=== PATIENT | female | born 1940 | race Caucasian/White ===

== ENCOUNTER 2019-03-13 23:59 | Inpatient (IN) | payer MEDICARE, BC ==
[~2019-03-13] VITALS: Ht 160 cm; Wt 82.2 kg
[2019-03-14] VITALS (7 sets, daily range): BP systolic 98–135; BP diastolic 57–84
--- NOTE | 2019-03-14 | NUR ---
Patient in room PCU 3017. I have received report from Verna ANGEL from [employer] and had the opportunity to ask questions and assume patient care. Patient arrived on PCU by EMS. She was oriented to room 3017B, helped into bed and placed on a panel monitor. Vital signs taken (all within normal range) and no pain present. Dr. Jeffrey paged and made aware of patient's arrival.
[2019-03-14] MEDS ORDERED: potassium Cl 20 mEq SR tablet PO PRN ×2 (00:15)
[2019-03-14] MEDS ORDERED: ondansetron/PF 4mg/2ml inj IV PRN (00:15)
[2019-03-14] MEDS ORDERED: magnesium 2GM in 50ml NS 50 ML IV PRN (00:15)
[2019-03-14] MEDS ORDERED: potassium CL 10mEq/100ml bag 100 ML IV PRN ×2 (00:15)
[2019-03-14] MEDS ORDERED: magnesium Cl slow-release 64mg tablet PO PRN (00:15)
[2019-03-14] MEDS ORDERED: nitroGLYCERIN 0.4mg SUBLingual tab SL PRN ×2 (00:15→17:00)
[2019-03-14] MEDS ORDERED: morphine 2 MG/ML inj. syringe IV PRN ×2 (00:15)
[2019-03-14] MEDS ORDERED: acetaminophen 325mg tablet PO PRN (00:15)
[2019-03-14] MEDS ORDERED: HYDROcodone/acetaminophen 5mg/325mg tablet PO PRN (00:15)
[2019-03-14] MEDS ORDERED: magnesium 4gm in 100ml NS 100 ML IV PRN (00:15)
[2019-03-14] MEDS ORDERED: magnesium hydroxide 30ml (MOM) UD suspension PO PRN (00:15)
[2019-03-14] MEDS ORDERED: TRAM50TA2 PO (00:20)
[2019-03-14] MEDS ORDERED: GABA-530 PO (00:20)
[2019-03-14] MEDS ORDERED: CLOP75TA35 PO (00:20)
[2019-03-14] MEDS ORDERED: CARV-50 PO (00:20)
[2019-03-14] MEDS ORDERED: METF750T46 PO (00:20)
[2019-03-14] MEDS ORDERED: DULO-31 PO (00:20)
[2019-03-14] MEDS ORDERED: PRAV40TA3 PO (00:20)
[2019-03-14] MEDS ORDERED: dextrose 50%-water 50ml dispensing syringe IV PRN ×2 (00:30)
[2019-03-14] MEDS ORDERED: glucagon, human recombinant 1mg kit SUBCUT PRN (00:30)
[2019-03-14] MEDS ORDERED: MESSAGE TO PHARMACY PO ONE (00:30)
[2019-03-14] MEDS ORDERED: dextrose ORAL solution 15 GM/59 ML bottle PO PRN ×2 (00:30)
[2019-03-14] MEDS ORDERED: heparin 10,000 units/1 ML INJ IV PRN (03:55)
[2019-03-14] MEDS ORDERED: traMADol 50MG tablet PO PRN (03:55)
[2019-03-14] MEDS ORDERED: heparin 10,000 units/1 ML INJ IV ONE (03:55)
[2019-03-14 04:06] LABS: BASOPHILS % (AUTO) 0.4 % (0-1); EOSINOPHILS # (AUTO) 0.3 X10'3 (0-0.9); EOSINOPHILS % (AUTO) 2.8 % (0-6); HEMATOCRIT 38.4 % (35.0-45.0); HEMOGLOBIN 12.6 g/dl (12.0-16.0); LYMPHOCYTES % (AUTO) 21.5 % (21-51); MEAN CORPUSCULAR HEMOGLOBIN 29.3 PG (27.0-31.0); MEAN CORPUSCULAR HGB CONC 32.7 g/dL (33.0-36.5); MEAN CORPUSCULAR VOLUME 89.4 FL (78-98); MEAN PLATELET VOLUME 8.6 FL (7.4-10.4); MONOCYTES # (AUTO) 0.7 X10'3 (0-0.9); MONOCYTES % (AUTO) 7.2 % (2-12); NEUTROPHILS # (AUTO) 6.4 X10'3 (1.8-7.7); NEUTROPHILS % (AUTO) 68.1 % (42-75); PLATELET COUNT 245 X10'3 (140-440); WHITE BLOOD COUNT 9.4 X10'3 (4.5-11.0)
[2019-03-14 04:28] LABS: ALBUMIN 2.8 G/DL (3.4-5.0); ANION GAP 7 (8-16); BLOOD UREA NITROGEN 35 MG/DL (7-18); BUN/CREATININE RATIO 17.5 (6.6-38.0); CALCIUM 8.5 MG/DL (8.5-10.1); CHLORIDE 105 MMOL/L (99-107); CHOL/HDL RATIO 3.3 (0.00-4.99); CHOLESTEROL 132 MG/DL (0-200); GLUCOSE 163 MG/DL (70-104); HDL CHOLESTEROL 40 MG/DL (35-60); HEMOGLOBIN A1C 8.9 % (4.5-6.2); LDL CHOLESTEROL 46 MG/DL (50-100); MAGNESIUM 2.2 MG/DL (1.5-2.4); POTASSIUM 4.1 MMOL/L (3.5-5.1); SODIUM 140 MMOL/L (135-145); TOTAL CARBON DIOXIDE 27.7 MMOL/L (24-32); TRIGLYCERIDES 155 MG/DL (20-135); eGFR 24 ML/MIN
--- NOTE | 2019-03-14 06:15 | NUR ---
Problems reprioritized. Patient report given, questions answered & plan of care reviewed with Catie ANGEL.
[2019-03-14 07:24] LABS: PARTIAL THROMBOPLASTIN TIME 27 SECONDS (22-32)
[2019-03-14] MEDS: duloxetine 30mg CAPSULE.DR PO SCH (07:27)
[2019-03-14] MEDS: clopidogrel 75mg tablet PO SCH (07:27)
[2019-03-14] MEDS: carVEDilol 12.5mg tablet PO SCH ×2 (07:28→21:06)
--- NOTE | 2019-03-14 07:30 | NUR ---
Patient in room PCU 3017. I have received report from Swetha and had the opportunity to ask questions and assume patient care.
[2019-03-14] MEDS: K and/or MAG REPLACEMENT MC SCH (08:00)
[2019-03-14] MEDS: heparin 25,000 UNIT/250ml bag 250 ML IV SCH (08:30)
[2019-03-14] MEDS ORDERED: pneumococcal 23-VAL P-sac vacc 25 mcg/0.5ml vial IMVAC ONE (10:00)
--- NOTE | 2019-03-14 13:33 | NUR ---
Spoke with Dr. Styles regarding diet. Patient has been NPO pending facilitator consult. Blood sugars have been within therapeutic range. Dr. Styles evaluated patient, pending new orders at this time.
--- NOTE | 2019-03-14 13:58 | NUR ---
PAGER ID: [phone] MESSAGE: [id number] Klarissa Arriazanan, patient has not been seen by chief order dispatcher but she is requesting something to eat. Blood sugars have been stable but she c/o light headedness. Can she eat yet?
--- NOTE | 2019-03-14 15:52 | NUR ---
Requested results of stress test from [facility] per Dr. Styles, pending report.
--- NOTE | 2019-03-14 16:36 | NUR ---
PAGER ID: [phone] MESSAGE: [id number] Klarissa Baltazar, Stress test report received. TRISHA Haddad RN [phone]
[2019-03-14] MEDS ORDERED: aminophylline 250mg/10ml inj. IV PRN (17:00)
[2019-03-14] MEDS ORDERED: regadenoson 0.4mg/5ml syringe IV ONE (17:00)
[2019-03-14] MEDS ORDERED: metoprolol tartrate 1mg/ml inj IV PRN (17:00)
--- NOTE | 2019-03-14 17:31 | NUR ---
DM consult: Pt with A1c 8.9 seen at bedside. Pt states she sees her PCP q 3 months for DM management, takes her meds per rx, and checks her BG levels weekly with resulting numbers 270. Pt acknowledges the need to start checking her BG levels more frequently. Pt states her current BG average is higher than normal and she had better control previously when she was on insulin however stopped taking insulin about 8 months ago d/t insurance issues per pt. Pt provided with written and verbal DM education with referral to outpatient DM class and RD contact information. Pt endorses an improving appetite since admit which is evident with documented 100% PO intake on heart healthy CHO controlled diet likely meeting nutrient needs. Pt denies food allergies and reports some difficulty swallowing at times. Pt denied need for texture modification at this time. RD consulted ST for BSS. Pt denies constipation/diarrhea. [facility] 03/13. Will continue to follow. Addendum: 03/14/19 at [address] Amended: Links added.
--- NOTE | 2019-03-14 18:12 | NUR ---
Problems reprioritized. Patient report given, questions answered & plan of care reviewed with Swetha.
--- NOTE | 2019-03-14 18:15 | NUR ---
Patient in room PCU 3017. I have received report from Barbara ANGEL and had the opportunity to ask questions and assume patient care. Patient is resting comfortably. Heparin is running at 800 units/hr. She is feeling well, will continue to monitor.
[2019-03-14] MEDS: gabapentin 100mg capsule PO SCH (21:07)
[2019-03-14] MEDS: pravastatin 40mg tablet PO SCH (21:07)
[2019-03-14] MEDS: insulin glargine (Lantus) pen - multi-dose SQ SCH (21:09)
[2019-03-15] VITALS (13 sets, daily range): BP systolic 108–134; BP diastolic 52–97
[2019-03-15 05:30] LABS: BASOPHILS % (AUTO) 0.4 % (0-1); EOSINOPHILS # (AUTO) 0.2 X10'3 (0-0.9); EOSINOPHILS % (AUTO) 2.9 % (0-6); HEMATOCRIT 36.5 % (35.0-45.0); LYMPHOCYTES # (AUTO) 2.1 X10'3 (1.1-4.8); LYMPHOCYTES % (AUTO) 30.1 % (21-51); MEAN CORPUSCULAR HEMOGLOBIN 29.4 PG (27.0-31.0); MEAN CORPUSCULAR HGB CONC 32.9 g/dL (33.0-36.5); MEAN CORPUSCULAR VOLUME 89.2 FL (78-98); MEAN PLATELET VOLUME 9.2 FL (7.4-10.4); MONOCYTES # (AUTO) 0.5 X10'3 (0-0.9); MONOCYTES % (AUTO) 6.9 % (2-12); NEUTROPHILS # (AUTO) 4.2 X10'3 (1.8-7.7); NEUTROPHILS % (AUTO) 59.7 % (42-75); PLATELET COUNT 213 X10'3 (140-440); RED BLOOD COUNT 4.09 X10'6 (4.20-5.60); WHITE BLOOD COUNT 7.1 X10'3 (4.5-11.0)
[2019-03-15] MEDS: heparin 25,000 UNIT/250ml bag 250 ML IV SCH (05:41)
[2019-03-15 05:42] LABS: ALBUMIN 2.8 G/DL (3.4-5.0); ANION GAP 7 (8-16); BLOOD UREA NITROGEN 28 MG/DL (7-18); BUN/CREATININE RATIO 15.3 (6.6-38.0); CALCIUM 8.3 MG/DL (8.5-10.1); CHLORIDE 108 MMOL/L (99-107); CREATININE 1.83 MG/DL (0.40-0.90); GLUCOSE 138 MG/DL (70-104); MAGNESIUM 2.3 MG/DL (1.5-2.4); POTASSIUM 4.1 MMOL/L (3.5-5.1); SODIUM 143 MMOL/L (135-145); TOTAL CARBON DIOXIDE 27.6 MMOL/L (24-32); eGFR 27 ML/MIN
--- NOTE | 2019-03-15 06:15 | NUR ---
Patient in room PCU 3017. I have received report from JEANNE Posada and had the opportunity to ask questions and assume patient care.
--- NOTE | 2019-03-15 06:15 | NUR ---
Problems reprioritized. Patient report given, questions answered & plan of care reviewed with Carolina ANGEL.
--- NOTE | 2019-03-15 07:31 | NUR ---
Fausto Baltazar Rm 0133G scheduled for Stress test this am. She had one at [place]. Nuc Med needs confirmation. Carolina Ext [phone] page to Wojciech
[2019-03-15] MEDS: K and/or MAG REPLACEMENT MC SCH (08:00)
--- NOTE | 2019-03-15 08:27 | NUR ---
PAGER ID: [phone] MESSAGE: [id number] Klarissa De Leon: Is it ok to feed pt? Stress test was cancelled because pt had a stress test recently. Thank You Jamie [phone]
[2019-03-15] MEDS: clopidogrel 75mg tablet PO SCH (08:54)
[2019-03-15] MEDS: carVEDilol 12.5mg tablet PO SCH ×2 (08:54→20:50)
[2019-03-15] MEDS: duloxetine 30mg CAPSULE.DR PO SCH (08:54)
[2019-03-15] MEDS ORDERED: iohexol 350MG/ML 100ml bottle IV ONE (12:06)
[2019-03-15] MEDS ORDERED: LIDOcaine 1% (10mg/ml)w/preservative injection 20ml MDV ONE (12:06)
[2019-03-15] MEDS ORDERED: iohexol 350 MG/ML 50ML vial IV ONE ×2 (12:06→12:49)
[2019-03-15] MEDS ORDERED: midazolam 2 mg/2 ml injection ONE (12:06)
[2019-03-15] MEDS ORDERED: fentaNYL/PF 50MCG/1 ML 2ML syringe ONE (12:06)
--- NOTE | 2019-03-15 13:14 | NUR ---
1200 pt went to rhinologist 1315 RECIEVED CALL FROM Juan director of cardiac cath lab. pt returning to U
[2019-03-15] MEDS ORDERED: normal saline 1000ml 1,000 ML IV ONE (14:10)
[2019-03-15] MEDS ORDERED: HYDROcodone/acetaminophen 10/325mg tab PO PRN (14:15)
[2019-03-15] MEDS ORDERED: proCHLORperazine 10 MG/2 ml inj IV PRN (14:15)
[2019-03-15] MEDS ORDERED: ondansetron/PF 4mg/2ml inj IV PRN (14:15)
[2019-03-15] MEDS ORDERED: OXAZEpam 15mg capsule PO PRN (14:15)
[2019-03-15] MEDS ORDERED: acetaminophen 325mg tablet PO PRN (14:15)
--- NOTE | 2019-03-15 15:53 | NUR ---
Received report from Steve ANGEL
--- NOTE | 2019-03-15 16:10 | NUR ---
report given to JEANNE Waldron on ACCE. Pt is stable A&Ox4, VSS.
--- NOTE | 2019-03-15 16:43 | NUR ---
Pt transported via bed to ACCE Rm 10. All belongings with pt and medications were delivered to RN.
--- NOTE | 2019-03-15 17:52 | NUR ---
PAGER ID: [phone] MESSAGE: 310: DEEPAKKINWilly - did you get in touch with Dr. Beebe for consult? he has not seen patient yet. charge Tamia ext [phone]
--- NOTE | 2019-03-15 18:00 | NUR ---
Patient in room MED 310. I have received report from Vanita ANGEL and had the opportunity to ask questions and assume patient care.
--- NOTE | 2019-03-15 18:26 | NUR ---
Problems reprioritized. Patient report given, questions answered & plan of care reviewed with Raoul ANGEL and Lexie ANGEL.
--- NOTE | 2019-03-15 19:35 | NUR ---
RN noticed visual deficit during helping pt with ADL. Neuro assessment was performed, slight facial droop noted to left lower face, no upper/lower extremities drifting, no diminished sensation to upper/lower extremities. Visual blind spot to left upper, and lower corners, as well as right lower corner. Pt was ambiguous with when the visual deficit started. RN will need to establish baseline with daughter Jeanne
--- NOTE | 2019-03-15 19:43 | NUR ---
LM with daughter Jeanne to r/o new onset of visual deficit
[2019-03-15] MEDS: gabapentin 100mg capsule PO SCH (20:50)
[2019-03-15] MEDS: pravastatin 40mg tablet PO SCH (20:51)
[2019-03-15] MEDS: insulin glargine (Lantus) pen - multi-dose SQ SCH (21:16)
[2019-03-16 02:00] VITALS: BP 99/56
[2019-03-16 05:22] LABS: BASOPHILS % (AUTO) 0.5 % (0-1); EOSINOPHILS # (AUTO) 0.2 X10'3 (0-0.9); EOSINOPHILS % (AUTO) 2.4 % (0-6); HEMATOCRIT 36.4 % (35.0-45.0); LYMPHOCYTES # (AUTO) 1.6 X10'3 (1.1-4.8); LYMPHOCYTES % (AUTO) 21.3 % (21-51); MEAN CORPUSCULAR HEMOGLOBIN 29.6 PG (27.0-31.0); MEAN CORPUSCULAR HGB CONC 33.1 g/dL (33.0-36.5); MEAN CORPUSCULAR VOLUME 89.5 FL (78-98); MEAN PLATELET VOLUME 9.1 FL (7.4-10.4); MONOCYTES # (AUTO) 0.5 X10'3 (0-0.9); MONOCYTES % (AUTO) 7.5 % (2-12); NEUTROPHILS % (AUTO) 68.3 % (42-75); PLATELET COUNT 215 X10'3 (140-440); RED BLOOD COUNT 4.07 X10'6 (4.20-5.60); RED CELL DISTRIBUTION WIDTH 16.1 % (11.5-14.5); WHITE BLOOD COUNT 7.3 X10'3 (4.5-11.0)
[2019-03-16 05:44] LABS: ALBUMIN 2.8 G/DL (3.4-5.0); ANION GAP 10 (8-16); BLOOD UREA NITROGEN 25 MG/DL (7-18); BUN/CREATININE RATIO 14.8 (6.6-38.0); CALCIUM 8.5 MG/DL (8.5-10.1); CHLORIDE 108 MMOL/L (99-107); CREATININE 1.69 MG/DL (0.40-0.90); GLUCOSE 108 MG/DL (70-104); MAGNESIUM 2.3 MG/DL (1.5-2.4); POTASSIUM 4.5 MMOL/L (3.5-5.1); SODIUM 142 MMOL/L (135-145); TOTAL CARBON DIOXIDE 24.5 MMOL/L (24-32); eGFR 29 ML/MIN
[2019-03-16 06:00] VITALS: BP 128/69
--- NOTE | 2019-03-16 06:00 | NUR ---
Problems reprioritized. Patient report given, questions answered & plan of care reviewed with JEANNE Waldron.
--- NOTE | 2019-03-16 06:30 | NUR ---
Patient in room MED 310. I have received report from Raoul ANGEL and had the opportunity to ask questions and assume patient care.
[2019-03-16] MEDS: clopidogrel 75mg tablet PO SCH (08:00)
[2019-03-16] MEDS: K and/or MAG REPLACEMENT MC SCH (08:00)
[2019-03-16] MEDS: carVEDilol 12.5mg tablet PO SCH ×2 (09:21→20:30)
[2019-03-16] MEDS: duloxetine 30mg CAPSULE.DR PO SCH (09:21)
[2019-03-16] MEDS ORDERED: MESSAGE TO NURSING PO ONE ×5 (09:50→10:00)
[2019-03-16] MEDS ORDERED: magnesium 4gm in 100ml NS 100 ML IV PRN (09:50)
[2019-03-16] MEDS ORDERED: potassium Cl 20 mEq SR tablet PO PRN (09:50)
[2019-03-16] MEDS ORDERED: magnesium 2GM in 50ml NS 50 ML IV PRN (09:50)
[2019-03-16] MEDS ORDERED: potassium Cl 20mEq/100mL bag 100 ML IV PRN (09:50)
[2019-03-16] MEDS ORDERED: dextrose 50%-water 50ml dispensing syringe IV PRN (09:50)
[2019-03-16] MEDS ORDERED: insulin glargine (Lantus) pen - multi-dose SQ PRN (09:50)
[2019-03-16 10:00] VITALS: BP 117/65
[2019-03-16 11:23] LABS: PARTIAL THROMBOPLASTIN TIME 27 SECONDS (22-32)
--- NOTE | 2019-03-16 12:33 | NUR ---
RECEIVED CALL FROM RADIOLOGIST RE: CT HEAD AND RADIOLOGIST NOTED VAGUE HYPODENSITY TO RIGHT SIDE OF BRAIN. PAGED HOSPITALIST, "VANITA [phone]- PLEASE CALL [facility] JOIE CT HEAD FOR RM Lennie FILEMON ACUNA" Addendum: 03/16/19 at 1637 by Vanita Ramesh RN WRONG TIME DOCUMENTED, CORRECT TIME WAS 1433
[2019-03-16 13:17] LABS: CLARITY,URINE CLEAR (Clear); COLOR,URINE YELLOW (Yellow); GLUCOSE, URINE NEGATIVE (Neg); KETONES,URINE TRACE mg/dl (Neg); LEUKOCYTE ESTERASE ,URINE NEGATIVE (Neg); NITRITES, URINE NEGATIVE (Neg); OCCULT BLOOD,URINE NEGATIVE (Neg); PROTEIN,URINE NEGATIVE (Neg); UROBILINOGEN,URINE 0.2 E.U/dL (0.2-1.0)
[2019-03-16 13:18] LABS: UA COLLECTION TYPE NON-SPECIFIED
[2019-03-16 14:30] VITALS: BP 141/78
--- NOTE | 2019-03-16 14:33 | NUR ---
RECEIVED CALL FROM RADIOLOGIST RE: CT HEAD AND RADIOLOGIST NOTED VAGUE HYPODENSITY TO RIGHT SIDE OF BRAIN. PAGED HOSPITALIST, "GABRIELLA [phone]- PLEASE CALL [facility] RE CT HEAD FOR RM 310 FILEMON ACUNA"
--- NOTE | 2019-03-16 14:56 | NUR ---
Page to Case Management 310-Giovanny. Pt. is now requesting to go to [facility] for her CABG. Thank You.
--- NOTE | 2019-03-16 15:05 | NUR ---
PAGED HOSPITALIST RE: +MRI FOR ACUTE STROKES.
--- NOTE | 2019-03-16 15:11 | NUR ---
PAGED HOSPITALIST, "GABRIELLA [phone]- PLEASE CALL THIS NURSE EVON RE: 310 FILEMON ACUNA. MRI SHOWING MULTIPLE ACUTE INFARCTS."
--- NOTE | 2019-03-16 16:15 | NUR ---
Dr Jeffrey notified of MRI results, Telemedicine neurology evaluation order initiated.
--- NOTE | 2019-03-16 17:12 | NUR ---
DR. DUNN REQUESTED PATIENT'S MRI/MRA RESULTS TO BE SENT TO [facility] AND FOR CAROTID DOPPLER TO BE SENT OVER WELL. CT SENT MRI/MRA OVER ALREADY AND THIS NURSE CALLED VASCULAR AND LEFT VOICEMAIL TO SEND CAROTID DOPPLER RESULTS OVER, WAITING ON CALLBACK. WILL MAKE MONA AWARE OF THIS.
--- NOTE | 2019-03-16 17:16 | NUR ---
PAGED DR. DUNN, 'GABRIELLA [phone]- [facility],LEFT VOICEMAIL FOR VASCULAR TO SEND CAROTID DOPPLER TO [facility] IF POSSIBLE."
[2019-03-16] MEDS ORDERED: heparin 25,000 UNIT/250ml bag 250 ML IV SCH ×2 (17:24→17:33)
[2019-03-16] MEDS ORDERED: heparin 10,000 units/1 ML INJ IV ONE (17:25)
[2019-03-16] MEDS ORDERED: heparin 10,000 units/1 ML INJ IV PRN (17:25)
--- NOTE | 2019-03-16 17:31 | NUR ---
PAGED HOSPITALIST, "GABRIELLA [phone]- RM. 310 FILEMON ACUNA- PLEASE CLARIFY CARDIAC OR STROKE HEP DRIP PROTOCOL?" CALLED BACK TO INFORM THAT HE WANTS STROKE HEP DRIP PROTOCOL.
[2019-03-16 18:00] VITALS: BP 131/78
[2019-03-16 18:07] LABS: BASOPHILS % (AUTO) 0.5 % (0-1); EOSINOPHILS # (AUTO) 0.1 X10'3 (0-0.9); EOSINOPHILS % (AUTO) 1.8 % (0-6); HEMATOCRIT 39.4 % (35.0-45.0); HEMOGLOBIN 12.8 g/dl (12.0-16.0); LYMPHOCYTES # (AUTO) 1.4 X10'3 (1.1-4.8); LYMPHOCYTES % (AUTO) 16.3 % (21-51); MEAN CORPUSCULAR HEMOGLOBIN 29.1 PG (27.0-31.0); MEAN CORPUSCULAR HGB CONC 32.6 g/dL (33.0-36.5); MEAN CORPUSCULAR VOLUME 89.3 FL (78-98); MEAN PLATELET VOLUME 9.3 FL (7.4-10.4); MONOCYTES # (AUTO) 0.4 X10'3 (0-0.9); MONOCYTES % (AUTO) 5.1 % (2-12); NEUTROPHILS # (AUTO) 6.4 X10'3 (1.8-7.7); NEUTROPHILS % (AUTO) 76.3 % (42-75); PLATELET COUNT 238 X10'3 (140-440); RED BLOOD COUNT 4.41 X10'6 (4.20-5.60); RED CELL DISTRIBUTION WIDTH 16.4 % (11.5-14.5); WHITE BLOOD COUNT 8.3 X10'3 (4.5-11.0)
[2019-03-16 18:16] LABS: PARTIAL THROMBOPLASTIN TIME 28 SECONDS (22-32)
--- NOTE | 2019-03-16 18:29 | NUR ---
Problems reprioritized. Patient report given, questions answered & plan of care reviewed with Silvia ANGEL.
[2019-03-16] MEDS: insulin Lispro (HumaLOG) vial - multi-dose SQ SCH (18:57)
[2019-03-16] MEDS ORDERED: mupirocin 2% nasal ointment 1gm UD NS SCH (20:00)
[2019-03-16] MEDS: gabapentin 100mg capsule PO SCH (20:28)
[2019-03-16] MEDS: metoprolol tartrate 12.5mg (1/2 tablet) PO SCH (20:30)
[2019-03-16] MEDS: pravastatin 40mg tablet PO SCH (20:30)
[2019-03-16] MEDS: insulin glargine (Lantus) pen - multi-dose SQ SCH (21:02)
[2019-03-16] MEDS: heparin 25,000 UNIT/250ml bag 250 ML IV SCH (21:16)
[2019-03-16 22:00] VITALS: BP 98/56
[2019-03-16] MEDS ORDERED: albuterol 2.5 MG/3 ML nebule NEB ONE (22:00)
[2019-03-16 22:15] LABS: ABG BASE EXCESS -2.4 mmol/L (-2.0-3.0); ABG HCO3 21.2 mmol/L (22.0-26.0); ABG OXYGEN SATURATION 95.4 % (95-98); ABG PCO2 (T) 32.9 mmHg (35.0-45.0); ABG PH (T) 7.427 (7.350-7.450); ABG PO2 (T) 73.3 mmHg (83-108); ALLEN'S TEST Positive; FCOHb 0.1 % (0.5-1.5); FMetHb 0.1 % (0.3-1.12); FO2Hb 95.2 % (94-100); PATIENT TEMPERATURE 36.8; RESPIRATORY RATE (OBSERVED) 16 b/min; TOTAL HEMOGLOBIN 12.9 G/dl (12.0-16.0)
[2019-03-17] MEDS: heparin 25,000 UNIT/250ml bag 250 ML IV SCH ×2 (01:01→17:53)
[2019-03-17 02:00] VITALS: BP 119/63
[2019-03-17] MEDS ORDERED: vancomycin/NS 1 GM ADD-VANTAGE 250 ML IV ONE (05:30)
[2019-03-17] MEDS ORDERED: MALTODEXTRIN/FRUCTOSE 0.68 KCAL/ML LIQUID 296ML BOTTLE PO ONE (05:30)
[2019-03-17] MEDS ORDERED: insulin regular, human 100 UNIT in normal saline 100ml IV soln 100 ML IV SCH ×2 (05:30)
[2019-03-17] MEDS ORDERED: cefazolin/dext.iso 2gm/50ml 50 ML IV ONE (05:30)
[2019-03-17] MEDS ORDERED: gabapentin 400mg capsule PO ONE (05:30)
[2019-03-17 06:00] VITALS: BP 131/71
--- NOTE | 2019-03-17 06:00 | NUR ---
Patient in room MED 310. I have received report from JEANNE Vega and had the opportunity to ask questions and assume patient care.
--- NOTE | 2019-03-17 06:15 | NUR ---
Problems reprioritized. Patient report given, questions answered & plan of care reviewed with JEANNE Waldron and JEANNE Salvador.
[2019-03-17 07:22] LABS: BASOPHILS % (AUTO) 0.4 % (0-1); EOSINOPHILS # (AUTO) 0.2 X10'3 (0-0.9); EOSINOPHILS % (AUTO) 2.1 % (0-6); HEMATOCRIT 37.4 % (35.0-45.0); HEMOGLOBIN 12.1 g/dl (12.0-16.0); LYMPHOCYTES % (AUTO) 23.4 % (21-51); MEAN CORPUSCULAR HEMOGLOBIN 29.1 PG (27.0-31.0); MEAN CORPUSCULAR HGB CONC 32.3 g/dL (33.0-36.5); MEAN CORPUSCULAR VOLUME 89.9 FL (78-98); MEAN PLATELET VOLUME 9.2 FL (7.4-10.4); MONOCYTES # (AUTO) 0.7 X10'3 (0-0.9); NEUTROPHILS # (AUTO) 5.6 X10'3 (1.8-7.7); NEUTROPHILS % (AUTO) 66.1 % (42-75); PLATELET COUNT 211 X10'3 (140-440); RED BLOOD COUNT 4.16 X10'6 (4.20-5.60); RED CELL DISTRIBUTION WIDTH 16.4 % (11.5-14.5); WHITE BLOOD COUNT 8.4 X10'3 (4.5-11.0)
[2019-03-17 07:39] LABS: ALBUMIN 2.8 G/DL (3.4-5.0); ANION GAP 8 (8-16); BLOOD UREA NITROGEN 27 MG/DL (7-18); BUN/CREATININE RATIO 15.8 (6.6-38.0); CALCIUM 9.3 MG/DL (8.5-10.1); CHLORIDE 107 MMOL/L (99-107); CREATININE 1.71 MG/DL (0.40-0.90); GLUCOSE 142 MG/DL (70-104); MAGNESIUM 2.5 MG/DL (1.5-2.4); POTASSIUM 4.2 MMOL/L (3.5-5.1); SODIUM 140 MMOL/L (135-145); TOTAL CARBON DIOXIDE 24.7 MMOL/L (24-32); eGFR 29 ML/MIN
--- NOTE | 2019-03-17 07:50 | NUR ---
PAGER ID: [phone] MESSAGE: RM 310 Bharti Baltazar 4522 PTT came back critical 121. Holding heparin gtt x2 hours per protocol. Madeleine ACCE 8222.
[2019-03-17] MEDS: carVEDilol 12.5mg tablet PO SCH ×2 (08:00→20:30)
[2019-03-17] MEDS: K and/or MAG REPLACEMENT MC SCH (08:00)
[2019-03-17] MEDS: metoprolol tartrate 12.5mg (1/2 tablet) PO SCH (08:00)
[2019-03-17] MEDS: duloxetine 30mg CAPSULE.DR PO SCH (08:40)
[2019-03-17] MEDS: insulin Lispro (HumaLOG) vial - multi-dose SQ SCH ×2 (08:51→14:08)
--- NOTE | 2019-03-17 09:00 | NUR ---
Patient noncompliant and was up /down to BR multiple times, would remove BP cuff during vital signs while performing V.S. protocol for initiation of cardizem drip. Was unable to chart vitals d/t noncompliance.
--- NOTE | 2019-03-17 09:02 | NUR ---
PAGER ID: [phone] MESSAGE: RM 310 Bharti Baltazar 6021 PTT came back critical 121. Holding heparin gtt x2 hours per protocol. Madeleine ACCE 8241.
[2019-03-17] MEDS: mag hydrox/Alum hydrox/simeth 30ml oral suspension PO PRN (10:44)
[2019-03-17] MEDS: HYDROcodone/acetaminophen 5mg/325mg tablet PO PRN (10:44)
[2019-03-17] MEDS: hydrocortisone 1% cream 28gm TP SCH ×2 (10:45→20:00)
[2019-03-17 11:00] VITALS: BP 102/54
--- NOTE | 2019-03-17 12:31 | NUR ---
Paged hospitalist, "Vanita [phone]- Rm. 310 GiovannyKlarissa had burning pain to right abd-resolved with Winfield & Maalox. Wanted to let you know."
--- NOTE | 2019-03-17 14:36 | NUR ---
Paged hospitalist, "Vanita 8263- Rm. 310 Klarissa Baltazra- per Dr. Houston recommendation wants a neuro consult. Can you consult a neurologist?" Waiting on neuro consult.
[2019-03-17 15:00] VITALS: BP 94/50
--- NOTE | 2019-03-17 17:28 | NUR ---
PAGER ID: [phone] MESSAGE: RM 310 Klarissa Baltazar. Urine output 300mls for the shift. Madeleine ACCE [id number]
--- NOTE | 2019-03-17 17:29 | NUR ---
Orientee documentation and med adminstration: I have reviewed and agree with all interventions, assessments performed and documented by Madeleine ANGEL.
[2019-03-17] MEDS ORDERED: normal saline 1000ml 1,000 ML IV ONE (17:40)
[2019-03-17 18:00] VITALS: BP 110/67
--- NOTE | 2019-03-17 18:30 | NUR ---
Problems reprioritized. Patient report given, questions answered & plan of care reviewed with JEANNE Vega & JEANNE Moore.
[2019-03-17] MEDS ORDERED: mupirocin 2% nasal ointment 1gm UD NS SCH (20:00)
[2019-03-17] MEDS: pravastatin 40mg tablet PO SCH (20:29)
[2019-03-17] MEDS: gabapentin 100mg capsule PO SCH (20:30)
[2019-03-17] MEDS: insulin glargine (Lantus) pen - multi-dose SQ SCH (21:58)
[2019-03-17 22:00] VITALS: BP 95/55
[2019-03-17 23:40] LABS: TOTAL PROTEIN,URINE RANDOM 33.5 MG/DL
[2019-03-18 02:00] VITALS: BP 95/62
[2019-03-18 02:38] LABS: BASOPHILS % (AUTO) 0.3 % (0-1); EOSINOPHILS # (AUTO) 0.2 X10'3 (0-0.9); HEMOGLOBIN 10.8 g/dl (12.0-16.0); LYMPHOCYTES # (AUTO) 1.7 X10'3 (1.1-4.8); MEAN CORPUSCULAR HEMOGLOBIN 29.2 PG (27.0-31.0); MEAN CORPUSCULAR HGB CONC 32.7 g/dL (33.0-36.5); MEAN CORPUSCULAR VOLUME 89.1 FL (78-98); MEAN PLATELET VOLUME 9.2 FL (7.4-10.4); MONOCYTES # (AUTO) 0.7 X10'3 (0-0.9); MONOCYTES % (AUTO) 8.4 % (2-12); NEUTROPHILS # (AUTO) 5.4 X10'3 (1.8-7.7); NEUTROPHILS % (AUTO) 68.3 % (42-75); PLATELET COUNT 173 X10'3 (140-440); RED BLOOD COUNT 3.71 X10'6 (4.20-5.60); RED CELL DISTRIBUTION WIDTH 15.8 % (11.5-14.5); WHITE BLOOD COUNT 7.9 X10'3 (4.5-11.0)
[2019-03-18 02:48] LABS: ALBUMIN 2.7 G/DL (3.4-5.0); ANION GAP 9 (8-16); BLOOD UREA NITROGEN 28 MG/DL (7-18); BUN/CREATININE RATIO 15.8 (6.6-38.0); CALCIUM 8.3 MG/DL (8.5-10.1); CHLORIDE 108 MMOL/L (99-107); CREATININE 1.77 MG/DL (0.40-0.90); GLUCOSE 148 MG/DL (70-104); MAGNESIUM 2.3 MG/DL (1.5-2.4); POTASSIUM 4.2 MMOL/L (3.5-5.1); SODIUM 142 MMOL/L (135-145); TOTAL CARBON DIOXIDE 25.1 MMOL/L (24-32); eGFR 28 ML/MIN
[2019-03-18] MEDS ORDERED: cefazolin/dext.iso 2gm/50ml 50 ML IV ONE (05:30)
[2019-03-18] MEDS ORDERED: insulin regular, human 100 UNIT in normal saline 100ml IV soln 100 ML IV SCH ×2 (05:30)
[2019-03-18] MEDS ORDERED: vancomycin/NS 1 GM ADD-VANTAGE 250 ML IV ONE (05:30)
[2019-03-18] MEDS ORDERED: MALTODEXTRIN/FRUCTOSE 0.68 KCAL/ML LIQUID 296ML BOTTLE PO ONE (05:30)
[2019-03-18] MEDS ORDERED: gabapentin 400mg capsule PO ONE (05:30)
[2019-03-18 06:00] VITALS: BP 114/59
--- NOTE | 2019-03-18 06:31 | NUR ---
Patient in room MED 310. I have received report from JEANNE Vega and had the opportunity to ask questions and assume patient care.
--- NOTE | 2019-03-18 06:32 | NUR ---
Problems reprioritized. Patient report given, questions answered & plan of care reviewed with Renetta.
--- NOTE | 2019-03-18 06:33 | NUR ---
Orientee documentation and medication administration: I have reviewed and agree with all interventions, assessments performed and documented by JEANNE Moore.
[2019-03-18] MEDS: hydrocortisone 1% cream 28gm TP SCH (06:38)
[2019-03-18] MEDS: K and/or MAG REPLACEMENT MC SCH (07:58)
[2019-03-18] MEDS: duloxetine 30mg CAPSULE.DR PO SCH (07:59)
[2019-03-18] MEDS: carVEDilol 12.5mg tablet PO SCH ×2 (07:59→21:48)
[2019-03-18] MEDS ORDERED: hydrocortisone 1% cream 28gm TP PRN (09:15)
[2019-03-18] MEDS: insulin Lispro (HumaLOG) vial - multi-dose SQ SCH (09:50)
--- NOTE | 2019-03-18 10:31 | NUR ---
PAGED PICC NURSE "RE: HERSKIND IN 310, CAN YOU PLEASE HELP WITH AN EXTENDED IV, PT CABG ISN'T UNTIL SUNDAY, AND SHE IS A DIFFICULT STICK. THANK YOU, THIAGO [phone]"
[2019-03-18 11:00] VITALS: BP 109/62
--- NOTE | 2019-03-18 13:46 | NUR ---
Initial: Pt admit w/ NSTEMI EF 45% and severe CAD per MD note. Plans for CABG 03/22 per MD note. PO 25% avg carb controlled/heart healthy meals not meeting needs. Pt seen by IRMA at bed side who encouraged PO and protein importance. Pt agrees to vanilla ensure pudding BIDBD; dietary notified. Pt endorses good appetite and reports once episode of reflux last night which has resolved and no further diet concerns. LBM 03/16. Will continue to monitor for additional protein needs. IF to have CABG will need ed once stable prior to d/c. Rec: 1. continue carb controlled/heart healthy diet 2. vanilla ensure pudding BIDBD while PO <65% avg meals 3. routine bowel care 4. weekly wts Addendum: 03/18/19 at [address] Amended: Links added.
[2019-03-18 15:00] VITALS: BP 118/62
[2019-03-18 18:00] VITALS: BP 138/63
--- NOTE | 2019-03-18 18:17 | NUR ---
Problems reprioritized. Patient report given, questions answered & plan of care reviewed with JEANNE Quezada.
--- NOTE | 2019-03-18 21:00 | NUR ---
Called the ARCHITECTURAL ENGINEERING TEACHER Yosef regarding the patient blood pressure being 204/103. He ordered Hydralazine q6hr prn for systolic blood pressure greater than 185. No other orders were given at this time.
[2019-03-18] MEDS: pravastatin 40mg tablet PO SCH (21:48)
[2019-03-18] MEDS: gabapentin 100mg capsule PO SCH (21:48)
[2019-03-18] MEDS: HYDROcodone/acetaminophen 5mg/325mg tablet PO PRN (21:49)
[2019-03-18] MEDS: mag hydrox/Alum hydrox/simeth 30ml oral suspension PO PRN (21:49)
[2019-03-18] MEDS: insulin glargine (Lantus) pen - multi-dose SQ SCH (21:51)
[2019-03-18 22:00] VITALS: BP 105/56
[2019-03-18] MEDS: heparin 25,000 UNIT/250ml bag 250 ML IV SCH (23:28)
[2019-03-18] MEDS: heparin 10,000 units/1 ML INJ IV PRN (23:29)
[2019-03-19 02:00] VITALS: BP 95/56
[2019-03-19 05:12] LABS: BASOPHILS # (AUTO) 0.1 X10'3 (0-0.2); EOSINOPHILS # (AUTO) 0.2 X10'3 (0-0.9); EOSINOPHILS % (AUTO) 2.8 % (0-6); HEMATOCRIT 28.1 % (35.0-45.0); HEMOGLOBIN 9.2 g/dl (12.0-16.0); LYMPHOCYTES # (AUTO) 1.9 X10'3 (1.1-4.8); LYMPHOCYTES % (AUTO) 26.9 % (21-51); MEAN CORPUSCULAR HEMOGLOBIN 29.4 PG (27.0-31.0); MEAN CORPUSCULAR HGB CONC 32.8 g/dL (33.0-36.5); MEAN CORPUSCULAR VOLUME 89.7 FL (78-98); MEAN PLATELET VOLUME 9.2 FL (7.4-10.4); MONOCYTES # (AUTO) 0.6 X10'3 (0-0.9); MONOCYTES % (AUTO) 8.3 % (2-12); NEUTROPHILS # (AUTO) 4.2 X10'3 (1.8-7.7); PLATELET COUNT 169 X10'3 (140-440); RED BLOOD COUNT 3.13 X10'6 (4.20-5.60); RED CELL DISTRIBUTION WIDTH 15.9 % (11.5-14.5)
[2019-03-19 05:50] LABS: ALBUMIN 2.6 G/DL (3.4-5.0); ANION GAP 7 (8-16); BLOOD UREA NITROGEN 25 MG/DL (7-18); BUN/CREATININE RATIO 15.1 (6.6-38.0); CALCIUM 8.5 MG/DL (8.5-10.1); CHLORIDE 108 MMOL/L (99-107); CREATININE 1.66 MG/DL (0.40-0.90); GLUCOSE 130 MG/DL (70-104); MAGNESIUM 2.3 MG/DL (1.5-2.4); POTASSIUM 4.4 MMOL/L (3.5-5.1); SODIUM 140 MMOL/L (135-145); TOTAL CARBON DIOXIDE 24.8 MMOL/L (24-32); eGFR 30 ML/MIN
[2019-03-19 06:00] VITALS: BP 100/55
[2019-03-19 07:02] LABS: LARGE PLATELETS FEW; PLATELET ESTIMATE NORMAL
[2019-03-19] MEDS: K and/or MAG REPLACEMENT MC SCH (08:00)
[2019-03-19] MEDS: duloxetine 30mg CAPSULE.DR PO SCH (09:47)
[2019-03-19] MEDS: carVEDilol 12.5mg tablet PO SCH ×2 (09:47→21:37)
[2019-03-19] MEDS: insulin Lispro (HumaLOG) vial - multi-dose SQ SCH ×2 (09:55→12:48)
[2019-03-19] MEDS: heparin 25,000 UNIT/250ml bag 250 ML IV SCH (10:03)
--- NOTE | 2019-03-19 10:11 | NUR ---
NIHSS worse from last documented, discussed with Dr Vyas order obtained for non contrast ct of the head.
[2019-03-19 11:00] VITALS: BP 122/62
[2019-03-19 15:00] VITALS: BP 113/64
[2019-03-19] MEDS ORDERED: ziprasidone IM 20mg inj **IM only IM ONE (16:55)
[2019-03-19 18:00] VITALS: BP 136/96
--- NOTE | 2019-03-19 18:15 | NUR ---
Problems reprioritized. Patient report given, questions answered & plan of care reviewed with JEANNE Quezada.
[2019-03-19] MEDS: pravastatin 40mg tablet PO SCH (21:37)
[2019-03-19] MEDS: gabapentin 100mg capsule PO SCH (21:37)
[2019-03-19] MEDS: mag hydrox/Alum hydrox/simeth 30ml oral suspension PO PRN (21:37)
[2019-03-19] MEDS: insulin glargine (Lantus) pen - multi-dose SQ SCH (21:44)
[2019-03-19 22:00] VITALS: BP 106/63
[2019-03-20 02:00] VITALS: BP 110/63
[2019-03-20] MEDS: heparin 10,000 units/1 ML INJ IV PRN ×2 (02:29→13:41)
[2019-03-20] MEDS: heparin 25,000 UNIT/250ml bag 250 ML IV SCH ×3 (02:33→13:44)
[2019-03-20 06:00] VITALS: BP 110/65
--- NOTE | 2019-03-20 06:28 | NUR ---
Gave report to Indigo. Answered all the questions.
--- NOTE | 2019-03-20 06:33 | NUR ---
Patient in room MED 310. I have received report from JEANNE Quezada and had the opportunity to ask questions and assume patient care.
[2019-03-20] MEDS: K and/or MAG REPLACEMENT MC SCH (08:00)
[2019-03-20] MEDS: carVEDilol 12.5mg tablet PO SCH ×2 (08:50→20:00)
[2019-03-20] MEDS: duloxetine 30mg CAPSULE.DR PO SCH (08:50)
[2019-03-20] MEDS: insulin Lispro (HumaLOG) vial - multi-dose SQ SCH ×2 (08:53→18:53)
[2019-03-20 10:31] LABS: ALANINE AMINOTRANSFERASE 7 U/L (12-78); ALBUMIN 2.1 G/DL (3.4-5.0); ALBUMIN/GLOBULIN RATIO 0.6 (1.1-1.5); ALKALINE PHOSPHATASE 54 IU/L (46-116); ANION GAP 10 (8-16); ASPARTATE AMINO TRANSFERASE 17 U/L (10-37); BILIRUBIN,TOTAL 0.3 MG/DL (0.1-1.0); BLOOD UREA NITROGEN 24 MG/DL (7-18); BUN/CREATININE RATIO 17.1 (6.6-38.0); CALCIUM 7.4 MG/DL (8.5-10.1); CHLORIDE 110 MMOL/L (99-107); GLUCOSE 185 MG/DL (70-104); MAGNESIUM 1.9 MG/DL (1.5-2.4); SODIUM 141 MMOL/L (135-145); TOTAL CARBON DIOXIDE 21.5 MMOL/L (24-32); TOTAL PROTEIN 5.5 G/DL (6.4-8.2); eGFR 36 ML/MIN
[2019-03-20 10:35] LABS: POTASSIUM 3.8 MMOL/L (3.5-5.1)
[2019-03-20 11:00] VITALS: BP 100/59
--- NOTE | 2019-03-20 14:48 | NUR ---
PAGER ID: [phone] MESSAGE: rm. 310. pt. Klarissa Baltazar. no current order for dorcas. going to remove it unless you oppose. JEANNE Calhoun. [phone] Addendum: 03/20/19 at 1523 by Unique Tolbert RN MD rasheed yañez.
[2019-03-20 15:00] VITALS: BP 114/63
--- NOTE | 2019-03-20 15:18 | NUR ---
PAGER ID: [phone] MESSAGE: 310: HERSKIND - family update. they want patient to D/C so they can take her to [facility]. ?d/c heparin and restart Plavix or heparin/lovenox SQ? charge Janay ext [phone]
--- NOTE | 2019-03-20 15:38 | NUR ---
Student documentation: I have reviewed and agree with all interventions, assessments performed and documented by AUDREY Demarco.
[2019-03-20] MEDS ORDERED: enoxaparin 100mg/ml syringe SUBCUT ONE (17:30)
[2019-03-20 18:00] VITALS: BP 121/66
--- NOTE | 2019-03-20 18:37 | NUR ---
Problems reprioritized. Patient report given, questions answered & plan of care reviewed with JEANNE Quezada.
[2019-03-20] MEDS ORDERED: mupirocin 2% nasal ointment 1gm UD NS SCH (20:00)
[2019-03-20] MEDS: gabapentin 100mg capsule PO SCH (21:13)
[2019-03-20] MEDS: pravastatin 40mg tablet PO SCH (21:13)
[2019-03-20] MEDS: insulin glargine (Lantus) pen - multi-dose SQ SCH (21:18)
[2019-03-20 22:00] VITALS: BP 122/71
[2019-03-21 02:00] VITALS: BP 111/48
[2019-03-21] MEDS ORDERED: MALTODEXTRIN/FRUCTOSE 0.68 KCAL/ML LIQUID 296ML BOTTLE PO ONE (05:30)
[2019-03-21] MEDS ORDERED: insulin regular, human 100 UNIT in normal saline 100ml IV soln 100 ML IV SCH ×2 (05:30)
[2019-03-21] MEDS ORDERED: cefazolin/dext.iso 2gm/50ml 50 ML IV ONE (05:30)
[2019-03-21] MEDS ORDERED: gabapentin 400mg capsule PO ONE (05:30)
[2019-03-21 05:34] LABS: MAGNESIUM 2.3 MG/DL (1.5-2.4)
[2019-03-21 06:00] VITALS: BP 103/50
[2019-03-21 06:09] LABS: ALBUMIN 2.3 G/DL (3.4-5.0); ALBUMIN/GLOBULIN RATIO 0.6 (1.1-1.5); ANION GAP 8 (8-16); ASPARTATE AMINO TRANSFERASE 14 U/L (10-37); BILIRUBIN,TOTAL 0.4 MG/DL (0.1-1.0); BLOOD UREA NITROGEN 27 MG/DL (7-18); BUN/CREATININE RATIO 17.2 (6.6-38.0); CALCIUM 8.5 MG/DL (8.5-10.1); CHLORIDE 109 MMOL/L (99-107); CREATININE 1.57 MG/DL (0.40-0.90); GLUCOSE 104 MG/DL (70-104); POTASSIUM 4.2 MMOL/L (3.5-5.1); SODIUM 140 MMOL/L (135-145); TOTAL CARBON DIOXIDE 22.6 MMOL/L (24-32); TOTAL PROTEIN 5.9 G/DL (6.4-8.2); eGFR 32 ML/MIN
--- NOTE | 2019-03-21 06:19 | NUR ---
Gave report to Indigo. Answered all the questions.
--- NOTE | 2019-03-21 06:30 | NUR ---
Patient in room MED 310. I have received report from JEANNE Quezada and had the opportunity to ask questions and assume patient care.
[2019-03-21 06:41] LABS: ALANINE AMINOTRANSFERASE 7 U/L (12-78); ALKALINE PHOSPHATASE 55 IU/L (46-116)
[2019-03-21 07:26] LABS: BASOPHILS % (AUTO) 0.7 % (0-1); EOSINOPHILS # (AUTO) 0.2 X10'3 (0-0.9); EOSINOPHILS % (AUTO) 3.4 % (0-6); HEMATOCRIT 32.5 % (35.0-45.0); HEMOGLOBIN 10.6 g/dl (12.0-16.0); LYMPHOCYTES # (AUTO) 2.2 X10'3 (1.1-4.8); LYMPHOCYTES % (AUTO) 32.7 % (21-51); MEAN CORPUSCULAR HEMOGLOBIN 29.2 PG (27.0-31.0); MEAN CORPUSCULAR HGB CONC 32.5 g/dL (33.0-36.5); MEAN CORPUSCULAR VOLUME 89.9 FL (78-98); MEAN PLATELET VOLUME 9.3 FL (7.4-10.4); MONOCYTES # (AUTO) 0.5 X10'3 (0-0.9); MONOCYTES % (AUTO) 7.9 % (2-12); NEUTROPHILS # (AUTO) 3.7 X10'3 (1.8-7.7); NEUTROPHILS % (AUTO) 55.3 % (42-75); PLATELET COUNT 209 X10'3 (140-440); RED BLOOD COUNT 3.61 X10'6 (4.20-5.60); RED CELL DISTRIBUTION WIDTH 16.1 % (11.5-14.5); WHITE BLOOD COUNT 6.6 X10'3 (4.5-11.0)
[2019-03-21] MEDS: carVEDilol 12.5mg tablet PO SCH ×2 (08:00→20:07)
[2019-03-21] MEDS: K and/or MAG REPLACEMENT MC SCH (08:00)
--- NOTE | 2019-03-21 08:15 | NUR ---
Patient has increased confusion and is intermittently obtunded. Difficulty arousing patient to wake up. This lasted for 30 minutes. MD notified and aware. Patient's clarity returned and was up for breakfast and up with nursing to use BSC. Patient returned to baseline. Will continue to monitor.
[2019-03-21] MEDS: duloxetine 30mg CAPSULE.DR PO SCH (10:22)
[2019-03-21 11:00] VITALS: BP 108/60
--- NOTE | 2019-03-21 12:14 | NUR ---
PAGER ID: [phone] MESSAGE: 310: HERSKIND - are you here tomorrow? did you want to process D/C paperwork now so we can have it ready in the AM for when family arrives from [place]? jil Gustafson
[2019-03-21] MEDS: insulin Lispro (HumaLOG) vial - multi-dose SQ SCH ×2 (13:10→19:35)
[2019-03-21] MEDS: Chloraseptic (Phenol) Spray 177ml MM PRN ×2 (13:11→22:07)
[2019-03-21] MEDS: enoxaparin 80mg/0.8ml syringe SUBCUT SCH (17:46)
[2019-03-21 18:00] VITALS: BP 117/66
--- NOTE | 2019-03-21 18:19 | NUR ---
Problems reprioritized. Patient report given, questions answered & plan of care reviewed with JEANNE eVga.
--- NOTE | 2019-03-21 18:25 | NUR ---
Patient in room MED 310. I have received report from JEANNE Cantrell and had the opportunity to ask questions and assume patient care.
--- NOTE | 2019-03-21 18:57 | NUR ---
I have reviewed and agree with all interventions, assessments performed and documented by JEANNE Cantrell.
[2019-03-21] MEDS: gabapentin 100mg capsule PO SCH (20:07)
[2019-03-21] MEDS: pravastatin 40mg tablet PO SCH (20:07)
[2019-03-21 22:00] VITALS: BP 101/59
[2019-03-21] MEDS: insulin glargine (Lantus) pen - multi-dose SQ SCH (22:05)
[2019-03-22 02:00] VITALS: BP 108/65
--- NOTE | 2019-03-22 05:49 | NUR ---
Orientee documentation and medication administration: I have reviewed and agree with all interventions, assessments performed and documented by JEANNE Moore.
[2019-03-22 06:09] LABS: BASOPHILS % (AUTO) 0.4 % (0-1); EOSINOPHILS # (AUTO) 0.2 X10'3 (0-0.9); EOSINOPHILS % (AUTO) 2.5 % (0-6); HEMATOCRIT 29.2 % (35.0-45.0); HEMOGLOBIN 9.7 g/dl (12.0-16.0); LYMPHOCYTES # (AUTO) 2.1 X10'3 (1.1-4.8); LYMPHOCYTES % (AUTO) 28.3 % (21-51); MEAN CORPUSCULAR HEMOGLOBIN 29.7 PG (27.0-31.0); MEAN CORPUSCULAR HGB CONC 33.2 g/dL (33.0-36.5); MEAN CORPUSCULAR VOLUME 89.3 FL (78-98); MEAN PLATELET VOLUME 9.3 FL (7.4-10.4); MONOCYTES # (AUTO) 0.5 X10'3 (0-0.9); MONOCYTES % (AUTO) 6.3 % (2-12); NEUTROPHILS # (AUTO) 4.7 X10'3 (1.8-7.7); NEUTROPHILS % (AUTO) 62.5 % (42-75); PLATELET COUNT 223 X10'3 (140-440); RED BLOOD COUNT 3.27 X10'6 (4.20-5.60); RED CELL DISTRIBUTION WIDTH 15.8 % (11.5-14.5); WHITE BLOOD COUNT 7.4 X10'3 (4.5-11.0)
--- NOTE | 2019-03-22 06:20 | NUR ---
Problems reprioritized. Patient report given, questions answered & plan of care reviewed with JEANNE Waldron.
[2019-03-22 06:30] VITALS: BP 111/61
--- NOTE | 2019-03-22 06:30 | NUR ---
Patient in room MED 310. I have received report from Oscar ANGEL and Silvia ANGEL and had the opportunity to ask questions and assume patient care.
[2019-03-22 06:43] LABS: ALBUMIN 2.6 G/DL (3.4-5.0); ANION GAP 9 (8-16); BLOOD UREA NITROGEN 30 MG/DL (7-18); BUN/CREATININE RATIO 17.9 (6.6-38.0); CALCIUM 8.9 MG/DL (8.5-10.1); CHLORIDE 107 MMOL/L (99-107); CREATININE 1.68 MG/DL (0.40-0.90); GLUCOSE 102 MG/DL (70-104); MAGNESIUM 2.4 MG/DL (1.5-2.4); POTASSIUM 4.5 MMOL/L (3.5-5.1); SODIUM 140 MMOL/L (135-145); TOTAL CARBON DIOXIDE 24.1 MMOL/L (24-32); eGFR 29 ML/MIN
[2019-03-22] MEDS: enoxaparin 80mg/0.8ml syringe SUBCUT SCH (07:46)
[2019-03-22] MEDS: duloxetine 30mg CAPSULE.DR PO SCH (07:46)
[2019-03-22] MEDS: K and/or MAG REPLACEMENT MC SCH (07:46)
[2019-03-22] MEDS: carVEDilol 12.5mg tablet PO SCH (07:46)
[2019-03-22] MEDS: insulin Lispro (HumaLOG) vial - multi-dose SQ SCH (09:13)
--- NOTE | 2019-03-22 11:38 | NUR ---
Discussed discharge instructions at this time, verbalized understanding. Made patient's grandson aware of education and that he is to take her directly to [place] OR [facility] right away to ER to be admitted for CABG, Patient discharged at this time without event via W/C and family private vehicle without event. Belongings sent with patient, IV removed, tele dc'd.
[2019-03-22] MEDS ORDERED: LOSA50TA64 PO (12:22)
== END 2019-03-22 11:30 | disposition short-term general hospital (02) | DRG 280 ==
LOC: PCU 3S 23:59 → OBSVTOIN 03-14 13:18 → MED 3N 03-15 16:32
PROVIDERS: ADMIT Hospitalist; ATTEND Internal Medicine
PROC: 4A023N7 Measurement of Cardiac Sampling and Pressure, Left Heart, Percutaneous Approach (ICD-10-PCS; principal; 2019-03-15)
PROC: B2111ZZ Fluoroscopy of Multiple Coronary Arteries using Low Osmolar Contrast (ICD-10-PCS; 2019-03-15)
PROC: B2151ZZ Fluoroscopy of Left Heart using Low Osmolar Contrast (ICD-10-PCS; 2019-03-15)
PROC: B3101ZZ Fluoroscopy of Thoracic Aorta using Low Osmolar Contrast (ICD-10-PCS; 2019-03-15)
PROC: B3111ZZ Fluoroscopy of Right Brachiocephalic-Subclavian Artery using Low Osmolar Contrast (ICD-10-PCS; 2019-03-15)
PROC: B3121ZZ Fluoroscopy of Left Subclavian Artery using Low Osmolar Contrast (ICD-10-PCS; 2019-03-15)
DX: I21.4 Non-ST elevation (NSTEMI) myocardial infarction (principal); I50.23 Acute on chronic systolic (congestive) heart failure; I63.40 Cerebral infarction due to embolism of unspecified cerebral artery; E43 Unspecified severe protein-calorie malnutrition; I13.0 Hypertensive heart and chronic kidney disease with heart failure and stage 1 through stage 4 chronic kidney disease, or unspecified chronic kidney disease; I65.22 Occlusion and stenosis of left carotid artery; I65.23 Occlusion and stenosis of bilateral carotid arteries; N18.3 Chronic kidney disease, stage 3 (moderate); I34.0 Nonrheumatic mitral (valve) insufficiency; I25.5 Ischemic cardiomyopathy; E11.22 Type 2 diabetes mellitus with diabetic chronic kidney disease; E78.5 Hyperlipidemia, unspecified; I25.10 Atherosclerotic heart disease of native coronary artery without angina pectoris; D64.9 Anemia, unspecified; I25.2 Old myocardial infarction; Z79.84 Long term (current) use of oral hypoglycemic drugs; Z79.899 Other long term (current) drug therapy; Z86.73 Personal history of transient ischemic attack (TIA), and cerebral infarction without residual deficits; Z95.1 Presence of aortocoronary bypass graft; Z98.41 Cataract extraction status, right eye; Z98.42 Cataract extraction status, left eye; Z90.710 Acquired absence of both cervix and uterus; Z68.31 Body mass index [BMI] 31.0-31.9, adult
CPT/HCPCS: 36415; 36600; 70450; 70544; 70551; 71046; 76775; 76937; 80048; 80053; 80061; 81003; 82570; 82803; 82948; 83036; 83735; 83880; 83935; 84156; 84300; 84484; 85018; 85025; 85347; 85576; 85610; 85730; 86885; 86900; 86901; 86920; 87081; 87207; 90732; 92508; 92616; 93005; 93306; 93458; 93567; 93880; 93970; 94060; 94640; 97110; 97112; 97116; 97161; 97530; 99152; A4620; A6258; C1760; G0378; J1644; J1650; J1815; J2001; J2250; J3010; J3370; J3486; J7030; Q9967